=== PATIENT | female | born 1985 | race Native Hawaiian/Other Pacific Islander ===

== ENCOUNTER 2018-07-02 21:09 | Emergency (ER) | payer OTHER ==
--- NOTE | 2018-07-02 22:42 | ED Physician Documentation ---
PD HPI SKIN - Stated complaint Stated Complaint: lump on forearm, FFJ - Chief complaint Chief Complaint: Wound - History obtained from History obtained from: Patient - History of Present Illness Timing - onset: How many days ago (2-3) Timing - duration: Days Timing - details: Gradual onset, Still present Location: LUE (forearm with main lesions. Small one left thigh.) Quality / character: Painful, Discolored (red), Raised. No: Draining Associated symptoms: No: Fever, Myalgias, N/V/D Contributing factors: Other (IVDU) Similar symptoms before: Diagnosis (skin abscesses from IVDU.) Recently seen: Not recently seen Review of Systems Constitutional: denies: Fever, Chills, Myalgias Cardiac: denies: Chest pain / pressure, Palpitations Respiratory: denies: Dyspnea, Cough Neurologic: denies: Focal weakness, Numbness PD PAST MEDICAL HISTORY - Past Medical History Past Medical History: Yes Cardiovascular: Deep vein thrombosis Respiratory: Asthma Psych: Depression, Anxiety Musculoskeletal: None Derm: Other - Past Surgical History Past Surgical History: No - Present Medications Home Medications: Ambulatory Orders Medication Instructions Recorded Confirmed Albuterol Sulfate [Ventolin Hfa] 2 puffs IH Q6HR PRN 07/05/14 07/10/14 Chlorhexidine Gluconate [Hibiclens] 10 ml TP DAILY #473 ml 07/02/18 Sulfamethox/Trimeth 800/160 1 each PO BID #14 tablet 07/02/18 [Bactrim Ds 800/160] - Allergies Allergies/Adverse Reactions: Allergies Allergy/AdvReac Type Severity Reaction Status Date / Time No Known Drug Allergies Allergy Verified 07/10/14 02:01 - Social History Does the pt smoke?: Yes Smoking Status: Current every day smoker Does the pt drink ETOH?: No Does the pt have substance abuse?: Yes Substance Use and Type: Heroin - Immunizations Immunizations are current?: Yes Immunizations: TDAP current <10years - POLST Patient has POLST: No PD ED PE NORMAL - Vitals Vital signs reviewed: Yes - General General: Alert and oriented X 3, No acute distress, Well developed/nourished - Derm Derm: Normal color, Warm and dry - Extremities Extremities: Other (left forearm with focal area of redness, tenderness, and swelling with fluctuance c/w abscess. it is near surface vein c/w needle stick abscess from IVDU. No red streaking on arm. Axilla without adenopathy. Left thigh with small pimple sized area of redness and tenderness. ) - Neuro Neuro: No motor deficit, No sensory deficit Results - Vitals Vitals: Vital Signs - 24 hr 07/02/18 07/02/18 21:12 23:35 Temperature 37.0 C 36.6 C Heart Rate 105 H 74 Respiratory 16 14 Rate Blood Pressure 133/93 H 101/66 O2 Saturation 96 100 Oxygen O2 Source Room air - Labs Labs: Microbiology 07/02/18 23:21 Wound Culture - Preliminary Arm - Left Procedures - Abscess I&D (location) left forearm Preparation: Confirmed with ultrasound, Lidocaine 1%, With epi Incision: Incised with scalpel, Purulent drainage, Irrigated, Culture obtained. No: Packed Other: Pt tolerated well, Dressing applied, Antibiotic prescribed PD MEDICAL DECISION MAKING - ED course Complexity details: considered differential, d/w patient - Sepsis Event Vital Signs: Vital Signs - 24 hr 07/02/18 07/02/18 21:12 23:35 Temperature 37.0 C 36.6 C Heart Rate 105 H 74 Respiratory 16 14 Rate Blood Pressure 133/93 H 101/66 O2 Saturation 96 100 Oxygen O2 Source Room air Departure - Departure Disposition: 01 Home, Self Care Clinical Impression: Abscess of left forearm Condition: Stable Record reviewed to determine appropriate education?: Yes Instructions: ED Abscess IandD Prescriptions: Chlorhexidine Gluconate [Hibiclens] 10 ml TP DAILY #473 ml Sulfamethox/Trimeth 800/160 [Bactrim Ds 800/160] 1 each PO BID #14 tablet Comments: Cleanse to your infection sites twice daily with soap and water. Reapply dressing. Continue this until they appear healed. Bactrim twice daily for a week for the infection. Use chlorhexidine body wash in the shower daily for the next week as well. Recheck if not improved over the next several days. Tylenol or ibuprofen if needed for pains. Discharge Date/Time: 07/02/18 23:39
[2018-07-02] MEDS ORDERED: SULFAMETH/TRIMETH DS 800/160 MG TABLET PO STA (23:05)
[2018-07-02] MEDS ORDERED: IBUPROFEN 600 MG TABLET PO STA (23:05)
[2018-07-02 23:38] VITALS: BP 101/66
== END 2018-07-02 23:39 | disposition home or self-care (01) ==
LOC: EDUNIT# → ED 21:09
DX: L02.414 Cutaneous abscess of left upper limb (principal); Z86.718 Personal history of other venous thrombosis and embolism; F17.200 Nicotine dependence, unspecified, uncomplicated
CPT/HCPCS: 10060; 87070; 87205; 99283; A9270

== ENCOUNTER 2020-12-14 21:57 | Outpatient (CLI) | payer MEDICAID | END 2020-12-14 21:58 | disposition critical access hospital (66) | LOC: EMS 21:57 | PROVIDERS: ATTEND Pediatrics | DX: Z39.0 Encounter for care and examination of mother immediately after delivery (principal) | CPT/HCPCS: A0425; A0429; A0999 ==

== ENCOUNTER 2020-12-14 22:53 | Inpatient (IN) | payer MEDICAID ==
[2020-12-14] MEDS ORDERED: HYDROCORTISONE 1% CREAM 28 GM TUBE PR PRN (23:22)
[2020-12-14] MEDS ORDERED: diphenhydrAMINE 25 MG CAPSULE PO PRN (23:22)
[2020-12-14] MEDS ORDERED: WITCH HAZEL/GLYCERIN 1 PAD TOP PRN (23:22)
[2020-12-14] MEDS ORDERED: ONDANSETRON ODT 4 MG TABLET TL PRN (23:22)
[2020-12-14] MEDS ORDERED: METHYLERGONOVINE 0.2 MG/ML VIAL IM PRN (23:22)
[2020-12-14] MEDS ORDERED: ONDANSETRON 4 MG/2 ML VIAL IVP PRN (23:22)
[2020-12-14] MEDS ORDERED: OXYTOCIN 10 UNIT/ML VIAL IM ONE (23:38)
[2020-12-14] MEDS ORDERED: ACETAMINOPHEN 500 MG TABLET PO SCH (23:45)
[2020-12-14] MEDS ORDERED: IBUPROFEN 600 MG TABLET PO SCH (23:45)
[2020-12-15 00:01] LABS: BASOPHILS % (AUTO) 0.4 %; EOSINOPHILS # (AUTO) 0.1 10^3/uL (0.0-0.7); EOSINOPHILS % (AUTO) 0.5 %; HCT - HEMATOCRIT 31.9 % (37.0-47.0); HGB - HEMOGLOBIN 10.5 g/dL (12.0-16.0); LYMPHOCYTES % (AUTO) 19.7 %; MEAN CORPUSCULAR HEMOGLOBIN 28.3 pg (27.0-31.0); MEAN CORPUSCULAR HGB CONC 32.9 g/dL (32.0-36.0); MEAN PLATELET VOLUME 10.7 fL (7.9-10.8); MONOCYTES # (AUTO) 0.5 10^3/uL (0.0-1.0); MONOCYTES % (AUTO) 5.3 %; NEUTROPHILS # (AUTO) 7.4 10^3/uL (1.5-6.6); NEUTROPHILS % (AUTO) 73.9 %; PLT - PLATELET COUNT 353 10^3/uL (130-450); RED BLOOD COUNT 3.71 10^6/uL (4.20-5.40); RED CELL DISTRIBUTION WIDTH 12.9 % (12.0-15.0); WHITE BLOOD COUNT 10.1 x10^3/uL (4.8-10.8)
[2020-12-15] MEDS: SULFAMETH/TRIMETH DS 800/160 MG TABLET PO SCH ×2 (00:05→16:16)
--- NOTE | 2020-12-15 00:05 | HISTORY & PHYSICAL EXAMINATION ---
Admit History - Smoking Status: Current every day smoker - Other Maternal History Other Maternal History: CC: delivered at home HPI: didn't know she was . Hx of oligomenorrhea sometimes missing menses for a year. LMP unknown. Started having horrible cramping pains at home and wasn't sure what was going on. Had "gushing" of blood and worried that she was bleeding out. Called 911. In the meantime, one baby foot came out of her vagina. She called her partner to assist and she delivered. About 10min prior to delivery she had a gush of "discharge"--had no copious discharge prior to this. ROS: Bilateral forearm swelling for 3d. Not sure if she had a fever or not. Some coughing. Other ROS unable to obtain due to lack of maternal focus. PMH: "bad" asthma PSH: D&C x2 Allergies: NKDA Meds: albuterol PRN, using about weekly FH: no defects or genetic problems OB: . Suction TAB x2. C[employer] TICK[employer] SELLING: denies STIs including HSV. SH: nicotine 1/2 PPD, denies other drug or alcohol use. FOB relates opioid use by Marybel Meds/Allgy - Home Medications Home Medications: Ambulatory Orders Medication Instructions Recorded Confirmed Albuterol Sulfate [Ventolin Hfa] 2 puffs IH Q6HR PRN 07/05/14 07/10/14 Chlorhexidine Gluconate [Hibiclens] 10 ml TP DAILY #473 ml 07/02/18 Sulfamethox/Trimeth 800/160 1 each PO BID #14 tablet 07/02/18 [Bactrim Ds 800/160] - Allergies Allergies/Adverse Reactions: Allergies Allergy/AdvReac Type Severity Reaction Status Date / Time No Known Drug Allergies Allergy Verified 07/10/14 02:01 Physical - Other Notes Labor Progress Note/Additional Text: Afebrile; BP mildly elevated; normal VS otherwise Alert, squirming in bed, never still, grimacing, hiding her head and arms intermittently behind a blanket. EOMI Cor RRR no murmurs Lungs with rales and wheezing throughout Abd soft, nt/nd Fundus firm, nontender, at umbilicus Vulva without lacerations LE without edema Skin: popping olguin extensive over upper and lower extremities. Bilateral forearms and hands with significant swelling, warmth, and erythema. Dirty hands and fingernails. Plan for Labor - Plan For Labor I expect patient to be DC'd or transferred within 96 hours.: Yes Plan for Labor: 35yo 1.5 hours s/p spontaneous delivery unattended at home. Baby appears to be about 31 weeks. Pt was unaware that she was --NOB labs drawn --s/p delivery, EBL unknown, normal bleeding currently, pt relates a lot of bleeding at home. --Polysubstance use during . Social work consult, nicotine patch, urine tox. Patient is squirming in bed c/w possible acute amphetamine intoxication but she denies using. Popping olguin extensive old and fresh over the extremities. FOB relates opoid use during the . Denies alcohol. --Cough and rales. Rapid covid screen and CXR. Pt with hx of asthma. Will do albuterol neb PRN normal xray. --Significantly abnormal forearms and hands bilaterally with warmth, edema, and erythema. Ddx includes infection--bactrim started. And thromboembolism--ultrasound ordered. Able to move wrists and fingers on her own. --Elevated BP to mild range. CBC, CMP pending. Need to obtain P:C ratio. Suspect possible amphetamine intoxication. --Peds is aware of all of the issues/findings above.
[2020-12-15 00:08] LABS: POTASSIUM 4.2 mmol/L (3.5-5.0)
[2020-12-15 00:09] LABS: ALBUMIN 2.2 g/dL (3.2-5.5); ALBUMIN/GLOBULIN RATIO 0.5 (1.0-2.2); BILIRUBIN,TOTAL 0.2 mg/dL (0.2-1.0); CALCIUM 8.6 mg/dL (8.5-10.3); CREATININE 0.6 mg/dL (0.4-1.0); TOTAL PROTEIN 6.9 g/dL (6.7-8.2)
[2020-12-15 00:20] LABS: HIV RAPID SCREEN NEGATIVE (NEGATIVE)
[2020-12-15 01:20] LABS: CORONAVIRUS 229E-RESP PCR NOT DETECTED; CORONAVIRUS HKU1-RESP PCR NOT DETECTED; CORONAVIRUS NL63-RESP PCR NOT DETECTED; CORONAVIRUS OC43-RESP PCR NOT DETECTED; HUMAN METAPNEUMOVIRUS NOT DETECTED; INFLUENZA A- RESP PCR PANEL NOT DETECTED; INFLUENZA B - RESP PCR PANEL NOT DETECTED; PARAINFLUENZA VIRUS 1 NOT DETECTED; PARAINFLUENZA VIRUS 2 NOT DETECTED; PARAINFLUENZA VIRUS 3 NOT DETECTED; PARAINFLUENZA VIRUS 4 NOT DETECTED; RHINOVIRUS/ENTEROVIRUS NOT DETECTED; SARS-CoV-2 -RESP PCR PANEL NOT DETECTED
[2020-12-15 01:21] LABS: B. PARAPERTUSSIS- RESP PCR PAN NOT DETECTED; B. PERTUSSIS- RESP PCR PANEL NOT DETECTED; C. PNEUMONIAE- RESP PCR PANEL NOT DETECTED; M. PNEUMONIAE- RESP PCR PANEL NOT DETECTED; RSV- RESP PCR PANEL NOT DETECTED
[2020-12-15] MEDS ORDERED: LORazepam 1 MG TABLET PO PRN (01:53)
[2020-12-15] MEDS ORDERED: hydrOXYzine PAMOATE 25 MG CAPSULE PO PRN (01:53)
[2020-12-15] MEDS ORDERED: ASPIRIN 325 MG TABLET PO SCH (01:54)
--- NOTE | 2020-12-15 02:00 | PROVIDER PROGRESS NOTE ---
Assessment/Plan - Current Meds Current Meds: Current Medications Generic Name Dose Route Start Last Admin Trade Name Pretty PRN Reason Stop Dose Admin Ibuprofen 600 mg 12/14/20 23:45 12/14/20 23:57 Ibuprofen 600 Mg Tablet PO 600 mg Q6H ABDIRAHMAN Administration Trimethoprim/Sulfamethoxazole 1 tab 12/14/20 23:43 12/15/20 00:05 Sulfameth/Trimeth Ds 800/160 Mg Tablet PO 1 tab BID ABDIRAHMAN Administration - Lab Result Fish Bone Diagrams: 12/14/20 23:40 12/14/20 23:40 - Other Other Results/Comments: S: feeling very anxious, almost ran out the door due to anxiety. A/P: 1) labs normal so far. A+, RI. Has not voided. 2) elevated BP: has not voided. Normal LFT, Cr, and plts 3) Anemia Hct 31: start PNV. Normocytic. 4) Bilateral upper extremity edema, erythema, and warmth: Right UE US without DVT. Ordered left side and pt declined due to anxiety. Discussed risk of VTE causing potentially fatal PE--and possible avoidance of fatality if she got US now instead of later. Pt declines US now--will image left side at 0700. Bactrim started for possible cellulitis. Hibiclens shower recommended. Start ASA. 5) Anxiety: likely from acute substance intoxication + overwhelmed with current circumstances. Vistaril and valium PRN. Hope to assist patient in ability to complete her tx here. 6) Bronchitis: by CXR and sx. Neg covid screen. Declines albuterol tx. - Additional Planning My Orders: My Active Orders 12/14/20 Breakfast Regular Diet [DIET] 12/14/20 23:21 Miscellaneous Laboratory Order [LAB] Urgent 12/14/20 23:22 Activity - [RC] QSHIFT Ice Pack [RC] PRN Notify Provider - VS Parameter [RC] .notify OB K-PAD [RC] PRN Checks - OB [RC] Q15MX8,Q1HRX2,Q4HRX6,QSHIFT Rhogam Workup if RH pos [RC] ONCE Vital Signs - OB [RC] Q15MX8,Q1HRX2,Q4HRX6,QSHIFT Hydrocortisone 1% Cream [Hydrocortisone] 1 applic [place] QID PRN Methylergonovine Inj [Methergine Inj] 0.2 mg IM Q4HR PRN Ondansetron Inj [Zofran Inj] 4 mg IVP Q4H PRN Ondansetron Odt [Zofran Odt] 4 mg TL Q4H PRN Witch Kylie/Glycerin [Tucks] 1 pad TOP QID PRN diphenhydrAMINE [Benadryl] 25 mg PO Q6H PRN Code Status [OTHERS] Routine Condition of Patient [OTHERS] Routine DVT Prophylaxis [OTHERS] Routine 12/14/20 23:23 Social Work Consult [CONS] Routine 12/14/20 23:40 HEPATITIS B SURFACE AG W CONF [REFLAB] Stat HEPATITIS C AB RFLX RNA QN [REFLAB] Stat HIV AB/AG 4TH GEN W/REFLEX [REFLAB] Stat MISC TEST QUEST REFRIG [REFLAB] Routine TREPONEMA AB IGG [REFLAB] Stat 12/14/20 23:43 Sulfamethox/Trimeth 800/160 [Bactrim Ds 800/160] 1 tab PO BID 12/14/20 23:45 Acetaminophen [Tylenol] 1,000 mg PO Q8H Ibuprofen [Motrin] 600 mg PO Q6H 12/14/20 23:50 CHLAM,NEISSERIA,TRICH DNA Stat GBSPCR,REFLEX IF PEN ALLERGIC Stat 12/15/20 URINE MTP/CREATININE RATIO [UC] Stat 12/15/20 00:01 Chest 1 View X-Ray [XR] Stat Duplex Ext Veins Right [US] Stat 12/15/20 00:17 UA w/ MICROSCOPIC, CULT IF [URIN] Stat 12/15/20 01:46 Duplex Ext Veins Left [US] Stat 12/15/20 01:53 LORazepam [Ativan] 1 mg PO Q6H PRN hydrOXYzine PAMOATE [VistariL] 50 mg PO Q4H PRN 12/15/20 01:54 Aspirin [Leidy] 325 mg PO DAILY 12/15/20 09:00 Docusate Sodium 100Mg Capsule [Colace 100Mg Capsule] 100 mg PO BID Nicotine 14 mg Patch [Nicoderm] 1 patch TOP DAILY 12/15/20 23:22 IV Discontinuation [RC] ONCE Objective Vital Signs: Oxygen O2 Source Room air - Results Results: Laboratory Results WBC 10.1 x10^3/uL (4.8-10.8) 12/14/20 23:40 RBC 3.71 10^6/uL (4.20-5.40) L 12/14/20 23:40 Hgb 10.5 g/dL (12.0-16.0) L 12/14/20 23:40 Hct 31.9 % (37.0-47.0) L 12/14/20 23:40 MCV 86.0 fL (81.0-99.0) 12/14/20 23:40 MCH 28.3 pg (27.0-31.0) 12/14/20 23:40 MCHC 32.9 g/dL (32.0-36.0) 12/14/20:40 RDW 12.9 % (12.0-15.0) 12/14/20 23:40 Plt Count 353 10^3/uL (130-450) 12/14/20 23:40 MPV 10.7 fL (7.9-10.8) 12/14/20 23:40 Neut # (Auto) 7.4 10^3/uL (1.5-6.6) H 12/14/20 23:40 Lymph # (Auto) 2.0 10^3/uL (1.5-3.5) 12/14/20 23:40 [place] # (Auto) 0.5 10^3/uL (0.0-1.0) 12/14/20 23:40 Eos # (Auto) 0.1 10^3/uL (0.0-0.7) 12/14/20 23:40 Baso # (Auto) 0.0 10^3/uL (0.0-0.1) 12/14/20 23:40 Absolute Nucleated RBC 0.00 x10^3/uL 12/14/20 23:40 Nucleated RBC % 0.0 /100WBC 12/14/20 23:40 Sodium 133 mmol/L (135-145) L 12/14/20 23:40 Potassium 4.2 mmol/L (3.5-5.0) 12/14/20 23:40 Chloride 103 mmol/L (101-111) 12/14/20 23:40 Carbon Dioxide 20 mmol/L (21-32) L 12/14/20 23:40 Anion Gap 10.0 (6-13) 12/14/20 23:40 BUN 12 mg/dL (6-20) 12/14/20 23:40 Creatinine 0.6 mg/dL (0.4-1.0) 12/14/20 23:40 Estimated GFR (MDRD) 114 (>89) 12/14/20 23:40 Glucose 107 mg/dL (70-100) H 12/14/20 23:40 Calcium 8.6 mg/dL (8.5-10.3) 12/14/20 23:40 Total Bilirubin 0.2 mg/dL (0.2-1.0) 12/14/20 23:40 AST 25 IU/L (10-42) 12/14/20 23:40 ALT 25 IU/L (10-60) 12/14/20 23:40 Alkaline Phosphatase 146 IU/L (42-121) H 12/14/20 23:40 Total Protein 6.9 g/dL (6.7-8.2) 12/14/20 23:40 Albumin 2.2 g/dL (3.2-5.5) L 12/14/20 23:40 Globulin 4.7 g/dL (2.1-4.2) H 12/14/20 23:40 Albumin/Globulin Ratio 0.5 (1.0-2.2) L 12/14/20 23:40 Nasal Adenovirus (PCR) NOT DETECTED 12/15/20 00:20 Nasal B. parapertussis DNA (PCR) NOT DETECTED 12/15/20 00:20 Nasal Coronavir 229E PCR NOT DETECTED 12/15/20 00:20 Nasal Coronavir HKU1 PCR NOT DETECTED 12/15/20 00:20 Nasal Coronavir NL63 PCR NOT DETECTED 12/15/20 00:20 Nasal Coronavir OC43 PCR NOT DETECTED 12/15/20 00:20 Nasal Enterovir/Rhinovir PCR NOT DETECTED 12/15/20 00:20 Nasal Influenza B PCR NOT DETECTED 12/15/20 00:20 Nasal Influenza A PCR NOT DETECTED 12/15/20 00:20 Nasal Parainfluen 1 PCR NOT DETECTED 12/15/20 00:20 Nasal Parainfluen 2 PCR NOT DETECTED 12/15/20 00:20 Nasal Parainfluen 3 PCR NOT DETECTED 12/15/20 00:20 Nasal Parainfluen 4 PCR NOT DETECTED 12/15/20 00:20 Nasal RSV (PCR) NOT DETECTED 12/15/20 00:20 Nasal B.pertussis DNA PCR NOT DETECTED 12/15/20 00:20 Nasal C.pneumoniae (PCR) NOT DETECTED 12/15/20 00:20 Omega Human Metapneumo PCR NOT DETECTED 12/15/20 00:20 Nasal M.pneumoniae (PCR) NOT DETECTED 12/15/20 00:20 Nasal SARS-CoV-2 (PCR) NOT DETECTED 12/15/20 00:20 Ethyl Alcohol < 5.0 mg/dL 12/14/20 23:56 HIV 1&2 Antibody Rapid NEGATIVE (NEGATIVE) 12/14/20 23:40 Rubella IgG Antibody 17.5 IU/mL 12/14/20 23:40 Blood Type A POSITIVE 12/14/20 23:40 Antibody Screen NEGATIVE 12/14/20 23:40 - Procedures Procedures: Procedures VENOUS CATHETERIZATION NEC (07/05/14)
--- NOTE | 2020-12-15 07:04 | Ultrasound Report ---
PROCEDURE: Duplex Ext Veins Right INDICATIONS: Forearm and hand swelling, erythema, and heat TECHNIQUE: Real-time imaging, as well as color and pulse Doppler interrogation, was performed of the right upper extremity deep veins from the inferior neck to the antecubital fossa. COMPARISON: 07/08/2014. FINDINGS: The internal jugular vein, visualized portions of the subclavian vein, axillary, and brach ial veins are free of intraluminal thrombus. Where physically possible, the veins are normally compr essible. Color and pulse Doppler demonstrate normal intraluminal flow, with expected phasicity and p ulsatility. Additional scanning of the cephalic and basilic veins of the superficial system demonstr ate normal compressibility, without thrombus. IMPRESSION: No evidence of deep vein thrombosis involving the right upper extremity. Reviewed by: Rebecca Mcintosh MD, PhD on 12/15/2020 7:03 AM PST Approved by: Rebecca cMintosh MD, PhD on 12/15/2020 7:03 AM PST Station ID: [id number]
--- NOTE | 2020-12-15 07:38 | Ultrasound Report ---
PROCEDURE: Duplex Ext Veins Left INDICATIONS: Erythema, warmth, and edema of forearm and hand TECHNIQUE: Real-time imaging, as well as color and pulse Doppler interrogation, was performed of the left upper extremity deep veins from the inferior neck to the antecubital fossa. COMPARISON: None. FINDINGS: The internal jugular vein, visualized portions of the subclavian vein, axillary, and brach ial veins are free of intraluminal thrombus. Where physically possible, the veins are normally compr essible. Color and pulse Doppler demonstrate normal intraluminal flow, with expected phasicity and p ulsatility. Additional scanning of the cephalic and basilic veins of the superficial system demonstr ate normal compressibility, without thrombus. IMPRESSION: No evidence of deep vein thrombosis involving the left upper extremity. Reviewed by: Rebecca Mcintosh MD, PhD on 12/15/2020 7:36 AM PST Approved by: Rebecca Mcintosh MD, PhD on 12/15/2020 7:36 AM PST Station ID: [id number]
[2020-12-15] MEDS ORDERED: NICOTINE 14 MG PATCH TOP SCH (09:00)
[2020-12-15] MEDS ORDERED: DOCUSATE SODIUM 100 MG CAPSULE PO SCH (09:00)
--- NOTE | 2020-12-15 09:48 | XRAY Report ---
PROCEDURE: Chest 1 View X-Ray INDICATIONS: rales, cough TECHNIQUE: One view of the chest was acquired. COMPARISON: Chest x-ray 12/28/2006 FINDINGS: Surgical changes and devices: None. Lungs and pleura: No pleural effusions or pneumothorax. Lungs are clear. Mediastinum: Mediastinal contours appear normal. Heart size is normal. Bones and chest wall: No suspicious bony lesions. Overlying soft tissues appear unremarkable. IMPRESSION: No consolidations or effusions. The above findings are concordant with preliminary report. Reviewed by: Liat Sanches MD on 12/15/2020 9:46 AM [facility] Approved by: Liat Sanches MD on 12/15/2020 9:46 AM [facility] Station ID: [id number]
[2020-12-15 09:53] VITALS: BP 132/86
--- NOTE | 2020-12-15 16:10 | Discharge Plan ---
Discharge Plan Problem Reviewed?: Yes Disposition: Home, Self Care Condition: Good Prescriptions: Acetaminophen [Acetaminophen Extra Strength] 1,000 mg PO Q6H PRN #45 tab PRN Reason: Pain Sulfamethox/Trimeth 800/160 [Bactrim Ds 800/160] 1 tab PO BID #20 tab Docusate Sodium 100Mg Capsule [Colace 100Mg Capsule] 100 mg PO BID PRN #30 cap PRN Reason: to soften stool Ibuprofen [Motrin] 600 mg PO Q6H PRN #30 tab PRN Reason: Pain 168/Iron/Folic/Omega3 [One-A-Day -1 Softgel] 1 each PO DAILY #90 cap Diet: Regular Activity Restrictions: nothing in the vagina Shower Restrictions: No Driving Restrictions: No Additional Instructions or Follow Up instructions: Shower daily and wash your arms with hibiclens Take the brush and scrub your fingernails with hibiclens when you get home Return IMMEDIATELY if your hands get worse No Smoking: If you smoke, Please STOP! Call for help. Follow-up with: Dorene Egan MD [Provider Admit Priv/Credential] - 2 Weeks
--- NOTE | 2020-12-15 17:44 | DISCHARGE SUMMARY ---
Physician: Tamar Dash MD DATE OF ADMISSION: 12/14/2020 DATE OF DISCHARGE: 12/15/2020 ADMISSION DIAGNOSES 1. Spontaneous delivery unattended at home. 2. Polysubstance abuse. 3. Upper extremity erythema and edema. DISCHARGE DIAGNOSES 1. Status post spontaneous delivery unattended at home. 2. Bilateral forearm and hand cellulitis. 3. Polysubstance abuse. 4. Acute blood loss anemia. HOSPITAL COURSE: The patient was brought in by ambulance with her baby after she had delivered at [facility]. She was unaware that she was . The baby appeared to be 31-32 weeks. Baby did well here and did not require work to stabilize him. He was transported to a ICU where he was doing w ell. Baby's urine tox screen was positive for opioids and amphetamines. The patient appeared to be acutely intoxicated on methamphetamine, although she did deny use. Signs of intoxication had resolve d by the time of discharge. She had impressive erythema, edema, and warmth of the bilateral hands an d forearms. She received bilateral upper extremity Dopplers that were negative for venous thromboemb olism. She was placed on Bactrim for treatment of her cellulitis and all of these findings were impr flaco. The patient apparently is a skin popper with innumerable lesions covering her arms and legs. From a perspective, the patient did well. She did not have any lacerations. Estimated bl ood loss was unknown. She was eating, ambulating, and urinating without problems. Her mood was stab le. She did not have any heavy bleeding or significant pain. Patient received a social work consult. CPS was notified and they will do her intake on Friday. DISCHARGE EXAMINATION GENERAL: Alert and resting comfortably, smiling, in no apparent distress. ABDOMEN: Soft, nontender, nondistended. Fundus firm, nontender, and 2 cm below the umbilicus. EXTREMITIES: Upper extremities with pop olguin throughout. Erythema warmth and edema present on the bilateral forearms and hands, improved from last exam. There is no lower extremity edema present. LABORATORY DATA: labs were obtained, the majority of which are pending. These do include a hematocrit of 31.9, normocytic. HIV negative, rubella immune, patient is status post her varicella vaccine series. She is COVID negative, and had a normal CMP. We did discuss contraception and she m ight be open to using an IUD. She was given a dose of Depo-Provera prior to discharge for contracept ion, which she did accept. DISCHARGE MEDICATIONS: Depo-Provera 150 mg IM x1 now. vitamins daily for treatment of anem ia. Bactrim double strength b.i.d. for 10 days to treat her cellulitis. Ibuprofen, Tylenol and Cola ce p.r.n. DISCHARGE INSTRUCTIONS: Routine discharge. PRECAUTIONS: Routine precautions given. FOLLOWUP: Immediately p.r.n. worsening of upper extremity cellulitis. Follow up in [address] Egan. DISCHARGE DISPOSITION: Home. CONDITION: Good. TD: 12/15/2020 16:34
[2020-12-15 22:46] LABS: CHLAMYDIA TRACHOMATIS DNA NEGATIVE (NEGATIVE); NEISSERIA GONORRHOEAE DNA NEGATIVE (NEGATIVE); TRICHOMONAS VAGINALIS DNA NEGATIVE (NEGATIVE)
[2020-12-16 09:42] LABS: HEPATITIS B SURFACE ANTIGEN NON-REACTIVE (NON-REACTIVE); HIV AG/AB 4TH GEN NON-REACTIVE (NON-REACTIVE)
[2020-12-16 13:31] LABS: HEPATITIS C ANTIBODY REACTIVE (NON-REACTIVE)
[2020-12-20 08:27] LABS: HCV RNA QNT 5.39 Log IU/mL (NOT DETECTED); HCV RNA QUANT RT PCR 248000 IU/mL (NOT DETECTED)
== END 2020-12-15 18:39 | disposition home or self-care (01) | DRG 776 ==
LOC: WFO 22:53 → FBP 22:54 → WFO 23:00 → FBP 23:00
PROVIDERS: ADMIT Obstetrics & Gynecology; ATTEND Obstetrics & Gynecology
DX: O99.325 Drug use complicating the puerperium (principal); L03.114 Cellulitis of left upper limb; L03.113 Cellulitis of right upper limb; D62 Acute posthemorrhagic anemia; O98.43 Viral hepatitis complicating the puerperium; F11.288 Opioid dependence with other opioid-induced disorder; F15.280 Other stimulant dependence with stimulant-induced anxiety disorder; F11.229 Opioid dependence with intoxication, unspecified; F15.229 Other stimulant dependence with intoxication, unspecified; O90.89 Other complications of the puerperium, not elsewhere classified; B19.20 Unspecified viral hepatitis C without hepatic coma; O90.81 Anemia of the puerperium; O99.335 Smoking (tobacco) complicating the puerperium; F17.210 Nicotine dependence, cigarettes, uncomplicated; O99.53 Diseases of the respiratory system complicating the puerperium; J45.909 Unspecified asthma, uncomplicated; S80.922A Unspecified superficial injury of left lower leg, initial encounter; S80.921A Unspecified superficial injury of right lower leg, initial encounter; S40.922A Unspecified superficial injury of left upper arm, initial encounter; S40.921A Unspecified superficial injury of right upper arm, initial encounter; X58.XXXA Exposure to other specified factors, initial encounter; Z20.822 Contact with and (suspected) exposure to COVID-19; Z79.51 Long term (current) use of inhaled steroids
CPT/HCPCS: 0202U; 71045; 80053; 80320; 81599; 85025; 86703; 86762; 86780; 86803; 86850; 86900; 86901; 87340; 87389; 87491; 87591; 87661; 87797; 88307; 93971; A9270; J1050; J8499; 83605

== ENCOUNTER 2022-03-10 16:53 | Outpatient (CLI) | payer MEDICAID | END 2022-03-10 16:54 | disposition short-term general hospital (02) | LOC: EMS 16:53 | DX: R50.9 Fever, unspecified (principal); M79.89 Other specified soft tissue disorders; R53.83 Other fatigue | CPT/HCPCS: A0425; A0429; A0999 ==